=== PATIENT | female | born 1975 | race African-American/Black ===

== ENCOUNTER 2019-08-17 15:07 | Emergency (ER) | payer SELFPAY ==
--- NOTE | 2019-08-17 15:49 | ER Document Report ---
ED Medical Screen (RME) - General Chief Complaint: Abdominal Pain Stated Complaint: ABDOMIAL PAIN Time Seen by Provider: 08/17/19 15:44 Mode of Arrival: Ambulatory Information source: Patient Notes: 44-year-old female presents to ED for complaint of right pelvic pain. She states she has had pain in both thighs for about a week the pain in the right pelvic area started this afternoon with vaginal bleeding much fly tier than normal menstrual cycle. She states her last menstrual cycle was July 26. Patient does have a blood pressure trouble of her troubles. She states is always higher when she is in pain. I have greeted and performed a rapid initial assessment of this patient. A comprehensive ED assessment and evaluation of the patient, analysis of test results and completion of medical decision making process will be conducted by an additional ED providers. Physical Exam - Vital signs Vitals: Temp Pulse Resp BP Pulse Ox 99.0 F 84 16 196/112 H 99 08/17/19 15:40 08/17/19 15:40 08/17/19 15:40 08/17/19 15:40 08/17/19 15:40 Course - Vital Signs Vital signs: Temp Pulse Resp BP Pulse Ox 99.0 F 84 16 196/112 H 99 08/17/19 15:40 08/17/19 15:40 08/17/19 15:40 08/17/19 15:40 08/17/19 15:40
[2019-08-17] MEDS ORDERED: IBUPROFEN 600 MG TABLET PO ONE (15:50)
[2019-08-17 16:39] LABS: ABSOLUTE BASOPHILS # (AUTO) 0.1 10^3/uL (0.0-0.2); ABSOLUTE EOSINOPHILS # (AUTO) 0.3 10^3/uL (0.0-0.6); ABSOLUTE LYMPHOCYTES (AUTO) 1.5 10^3/uL (0.5-4.7); ABSOLUTE MONOCYTES (AUTO) 0.7 10^3/uL (0.1-1.4); ABSOLUTE NEUT (AUTO) 6.2 10^3/uL (1.7-8.2); BASOPHILS % (AUTO) 0.8 % (0-2); EOSINOPHILS % (AUTO) 3.6 % (0-6); HEMATOCRIT 35.7 % (36.0-47.0); MEAN CORPUSCULAR HEMOGLOBIN 30.7 pg (27.0-33.4); MEAN CORPUSCULAR HGB CONC 33.5 g/dL (32.0-36.0); MEAN CORPUSCULAR VOLUME 92 fl (80-97); MONOCYTES % (AUTO) 7.6 % (3-13); PLATELET COUNT 384 10^3/uL (150-450); TOTAL CELLS COUNTED % (AUTO) 100 %; WHITE BLOOD COUNT 8.7 10^3/uL (4.0-10.5)
[2019-08-17 16:43] LABS: APPEARANCE,URINE CLOUDY; BILIRUBIN,URINE NEGATIVE (NEGATIVE); COLOR,URINE AMBER; GLUCOSE, URINE NEGATIVE (NEGATIVE); KETONES,URINE TRACE mg/dL (NEGATIVE); PROTEIN,URINE 100 mg/dL (NEGATIVE); URINE SPECIFIC GRAVITY 1.025; UROBILINOGEN,URINE NEGATIVE mg/dL (<2.0)
[2019-08-17 16:55] LABS: ALBUMIN 4.3 g/dL (3.5-5.0); ALKALINE PHOSPHATASE 70 U/L (38-126); ANION GAP 8 (5-19); ASPARTATE AMINO TRANSFERASE 20 U/L (14-36); BILIRUBIN,DIRECT 0.2 mg/dL (0.0-0.4); BILIRUBIN,TOTAL 0.3 mg/dL (0.2-1.3); BLOOD UREA NITROGEN 15 mg/dL (7-20); CALCIUM 9.5 mg/dL (8.4-10.2); CARBON DIOXIDE 35 mmol/L (22-30); CHLORIDE 97 mmol/L (98-107); GLUCOSE 88 mg/dL (75-110); POTASSIUM 3.5 mmol/L (3.6-5.0); TOTAL PROTEIN 7.6 g/dL (6.3-8.2)
--- NOTE | 2019-08-17 17:31 | RADIOLOGY REPORT (SQ) ---
EXAM DESCRIPTION: U/S NON-OB PELVIS TV W/O DOP COMPLETED DATE/TIME: 08/17/2019 5:17 pm REASON FOR STUDY: Right pelvic pain vaginal bleeding COMPARISON: None. TECHNIQUE: Dynamic and static grayscale images acquired of the pelvis via transvaginal approach and recorded on PACS. Additional selected color Doppler and spectral images recorded. LIMITATIONS: None. FINDINGS: UTERUS: Enlarged. Slightly heterogeneous. No focal masses. ENDOMETRIAL STRIPE: No focal or generalized thickening. No masses. CERVIX: Multiple nabothian cysts. RIGHT OVARY AND DOPPLER: Normal size. No worrisome masses. Normal arterial vascular flow without evid ence for torsion. LEFT OVARY AND DOPPLER: Ovary not visualized. FREE FLUID: None noted. OTHER: No other significant finding. MEASUREMENTS: UTERUS: 9.4 cm ENDOMETRIAL STRIPE: 8 mm RIGHT OVARY: 3 cm LEFT OVARY: Not visualized. IMPRESSION: Enlarges slightly heterogeneous uterus without focal mass identified. No other signific ant finding. TECHNICAL DOCUMENTATION: JOB ID: [id number] [employer]- All Rights Reserved Rev-12/02 Reading location - IP/workstation name: [email or web address]
--- NOTE | 2019-08-17 19:07 | ER Document Report ---
ED General - General Chief Complaint: Pelvic Pain Stated Complaint: ABDOMIAL PAIN Time Seen by Provider: 08/17/19 15:44 Mode of Arrival: Ambulatory Information source: Patient Notes: Patient is a 44-year-old female presenting to the emergency department chief complaint of right lower quadrant pain. Patient states it started earlier this morning and got to the point of being 10 out of 10. She states that time of evaluation that the pain has subsided after some Motrin to 7 out of 10. Patient also is complaining of bilateral lower extremity discomfort. Patient states that she and her have been traveling around for the past several days but has not spent excessive time in a car without movement. Patient also reports that her menstrual cycle started early/today. TRAVEL OUTSIDE OF THE [place] IN LAST 30 DAYS: No - HPI Onset: This morning Onset/Duration: Gradual Quality of pain: Pressure, Throbbing Severity: Severe Pain Level: 5 Associated symptoms: Body/muscle aches Exacerbated by: Movement, Walking Relieved by: Sitting Similar symptoms previously: No Recently seen / treated by doctor: No - Related Data Allergies/Adverse Reactions: carisoprodol [From Soma] Allergy (Verified 08/17/19 15:48) cephalexin [From Keflex] Allergy (Verified 08/17/19 15:48) Iodinated Contrast Media Allergy (Verified 08/17/19 15:48) ketorolac [From Toradol] Allergy (Verified 08/17/19 15:48) sulfamethoxazole [From Bactrim] Allergy (Verified 08/17/19 15:48) trimethoprim [From Bactrim] Allergy (Verified 08/17/19 15:48) Past Medical History - General Information source: Patient - Social History Smoking Status: Unknown if Ever Smoked Cigarette use (# per day): No Chew tobacco use (# tins/day): No Frequency of alcohol use: None Drug Abuse: None Lives with: Spouse/Significant other Family History: Reviewed & Not Pertinent Patient has suicidal ideation: No Patient has homicidal ideation: No - Past Medical History Cardiac Medical History: Reports: Hx Hypertension Past Surgical History: Reports: Hx Cholecystectomy Review of Systems - Review of Systems Constitutional: No symptoms reported EENT: No symptoms reported Cardiovascular: No symptoms reported Respiratory: No symptoms reported Gastrointestinal: Abdominal pain Genitourinary: No symptoms reported Female Genitourinary: Irregular period Musculoskeletal: No symptoms reported Skin: No symptoms reported Hematologic/Lymphatic: No symptoms reported Neurological/Psychological: No symptoms reported -: Yes All other systems reviewed and negative Physical Exam - Vital signs Vitals: Temp Pulse Resp BP Pulse Ox 99.0 F 84 16 196/112 H 99 08/17/19 15:40 08/17/19 15:40 08/17/19 15:40 08/17/19 15:40 08/17/19 15:40 - General General appearance: Appears well In distress: Mild - HEENT Head: Normocephalic, Atraumatic Eyes: Normal Pupils: PERRL - Respiratory Respiratory status: No respiratory distress Chest status: Nontender Breath sounds: Normal Chest palpation: Normal - Cardiovascular Rhythm: Regular Heart sounds: Normal auscultation Murmur: No - Abdominal Inspection: Normal Distension: No distension Bowel sounds: Normal Tenderness: Tender Organomegaly: No organomegaly Notes: Patient has right lower quadrant abdominal pain no rebound minimal guarding. - Back Back: Normal, Nontender. No: CVA tenderness - Extremities General upper extremity: Normal inspection, Nontender, Normal color, Normal ROM, Normal temperature General lower extremity: Normal inspection, Nontender, Normal color, Normal ROM, Normal temperature, Normal weight bearing. No: Neil's sign Notes: Bilateral calves are soft nontender no Homans sign pulses are present at the dorsalis pedis bilaterally. - Neurological Neuro grossly intact: Yes Cognition: Normal Orientation: AAOx4 [place] Coma Scale Eye Opening: Spontaneous [place] Coma Scale Verbal: Oriented [place] Coma Scale Motor: Obeys Commands [place] Coma Scale Total: 15 Speech: Normal Motor strength normal: LUE, RUE, LLE, RLE Sensory: Normal - Skin Skin Temperature: Warm Skin Moisture: Dry Skin Color: Normal Course - Re-evaluation Re-evalutation: 08/17/19 19:06 I have reviewed the patient's laboratory results with understanding of a possible urinary tract infection however patient is still moderate amount of pain and ultrasound demonstrated no acute finding. Patient will receive CT abdomen and pelvis without contrast secondary to contrast allergy. Patient is agreeable with same. is negative. 08/17/19 20:02 Patient has been reevaluated once again after CAT scan was performed there is no significant findings indicative of obvious pathologic etiology of the patient's pain. Patient will be discharged home she will receive 1 dose of pain medicine and antiemetic in the emergency department and recommended to follow-up with her primary care provider at home when she returns to [place] tomorrow. Patient states her blood pressure is elevated because of the discomfort and will take her medication at home as prescribed. Patient is stable at time of discharge. 08/17/19 20:06 - Vital Signs Vital signs: Temp Pulse Resp BP Pulse Ox 99.0 F 84 16 187/107 H 99 08/17/19 15:40 08/17/19 15:40 08/17/19 15:40 08/17/19 15:49 08/17/19 15:40 - Laboratory Result Diagrams: 08/17/19 16:22 08/17/19 16:22 Laboratory results interpreted by me: 08/17/19 08/17/19 08/17/19 15:10 16:22 16:22 Hct 35.7 L Potassium 3.5 L Chloride 97 L Carbon Dioxide 35 H Est GFR (MDRD) Non-Af 58 L Urine Protein 100 H Urine Ketones TRACE H Urine Blood LARGE H Leukocyte Esterase Rfl SMALL H Urine Ascorbic Acid 40 H Discharge - Discharge Clinical Impression: Abdominal pain Condition: Stable Disposition: HOME, SELF-CARE Instructions: Abdominal Pain ([facility]) Additional Instructions: Please return to the emergency department for worsening symptoms to include fever not responding to Tylenol or Motrin, uncontrollable vomiting or diarrhea or vomiting blood or passing blood per rectum. Forms: Elevated Blood Pressure
--- NOTE | 2019-08-17 19:34 | RADIOLOGY REPORT (SQ) ---
EXAM DESCRIPTION: CT ABD/PELVIS NO ORAL OR IV COMPLETED DATE/TIME: 08/17/2019 7:22 pm REASON FOR STUDY: RLQ Pain w/ situs inversus COMPARISON: None. TECHNIQUE: CT scan of the abdomen and pelvis performed without intravenous or oral contrast. Images reviewed with lung, soft tissue, and bone windows. Reconstructed coronal and sagittal MPR images revi ewed. All images stored on PACS. All CT scanners at this facility use dose modulation, iterative reconstruction, and/or weight based d osing when appropriate to reduce radiation dose to as low as reasonably achievable (ALARA). [facility]: Dose Right [facility]: CareDose [facility]: Dose Right [facility]: Teradose 4D [facility]: Smart Sano RADIATION DOSE: CT Rad equipment meets quality standard of care and radiation dose reduction techniq ues were employed. CTDIvol: 6.6 mGy. DLP: 304 mGy-cm.mGy. LIMITATIONS: None. FINDINGS: LOWER CHEST: No significant findings. No nodules or infiltrates. NON-CONTRASTED LIVER, SPLEEN, ADRENALS: Evaluation limited by lack of IV contrast. No identified sign ificant masses. PANCREAS: No masses. No peripancreatic inflammatory changes. GALLBLADDER: Surgically absent. RIGHT KIDNEY AND URETER: No suspicious masses. Assessment limited by lack of IV contrast. No signif icant calcifications. No hydronephrosis or hydroureter. LEFT KIDNEY AND URETER: No suspicious masses. Assessment limited by lack of IV contrast. No signifi cant calcifications. No hydronephrosis or hydroureter. AORTA AND RETROPERITONEUM: No aneurysm. No retroperitoneal masses or adenopathy. 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 The appendix lies on the patient's l eft. No obvious bowel mass. APPENDIX: Normal. PELVIS, BLADDER, AND ABDOMINAL WALL:No abnormal masses. No free fluid. Bladder normal. BONES: No significant findings. OTHER: No other significant finding. IMPRESSION: Malrotation of the colon. No acute finding in the abdomen or pelvis. COMMENT: Quality ID # [id number]: Final reports with documentation of one or more dose reduction techniques (e.g., Automated exposure control, adjustment of the mA and/or kV according to patient size, use of iterative reconstruction technique) TECHNICAL DOCUMENTATION: JOB ID: [id number] [employer]- All Rights Reserved Reading location - IP/workstation name: [email or web address]
[2019-08-17] MEDS ORDERED: ONDANSETRON 4 MG TAB.RAPDIS PO ONE (20:03)
[2019-08-17] MEDS ORDERED: HYDROCODONE/ACETAMINOPHEN 5-325 MG TABLET PO ONE (20:03)
[2019-08-17 20:19] VITALS: BP 167/113
== END 2019-08-17 20:17 | disposition home or self-care (01) ==
LOC: ER 15:07
DX: R10.31 Right lower quadrant pain (principal); R10.819 Abdominal tenderness, unspecified site; M79.10 Myalgia, unspecified site; I10 Essential (primary) hypertension; Z79.899 Other long term (current) drug therapy; Z88.8 Allergy status to other drugs, medicaments and biological substances; Z88.1 Allergy status to other antibiotic agents; Z91.041 Radiographic dye allergy status
CPT/HCPCS: 99284; 36415; 84702; 85025; 80053; 81001; 76830; 74176; S0119